=== PATIENT | male | born 1955 | race Caucasian/White ===

== ENCOUNTER 2023-09-18 20:07 | Inpatient (IN) | payer MEDICARE, MEDICAID ==
[~2023-09-18] VITALS: Ht 175.3 cm; Wt 108.4 kg
[2023-09-18] MEDS ORDERED: NOREPINEPHRINE 8MG/250ML PMX 250 ML IV ONE (20:15)
[2023-09-18 20:31] VITALS: PULSE 58; RESP 16
[2023-09-18 20:32] LABS: BASOPHILS % 0.4 % (0.0-2.0); EOSINOPHILS % 0.5 % (0.0-5.0); LYMPHOCYTES % 20.1 % (20.0-50.0); MEAN CORPUSCULAR HEMOGLOBIN 25.9 pg (28.0-32.0); MEAN CORPUSCULAR HGB CONC 30.3 g/dL (31.0-37.0); MEAN CORPUSCULAR VOLUME 85.5 fL (80.0-94.0); MONOCYTES % 5.5 % (2.0-8.0); NEUTROPHILS % 73.5 % (40.0-76.0); PLATELET 167 x1000/uL (130-400); RED BLOOD CELL COUNT 2.69 mill/uL (4.7-6.1); RED CELL DISTRIBUTION WIDTH 17.6 % (11.6-14.6); WHITE BLOOD COUNT 11.3 x1000/uL (4.5-11.0)
[2023-09-18 20:41] LABS: INR 1.2; PROTHROMBIN TIME 12.4 sec (9.6-11.0)
[2023-09-18 20:49] LABS: ALANINE AMINOTRANSFERASE 16 IU/L (10-49); ALBUMIN 3.3 g/dL (3.2-4.8); ASPARTATE AMINOTRANSFERASE 34 IU/L (<34); BILIRUBIN TOTAL 0.5 mg/dL (0.1-1.0); CALCIUM 8.5 mg/dL (8.7-10.4); CARBON DIOXIDE 12 mEq/L (21-32); CHLORIDE 114 mEq/L (98-107); GLUCOSE 111 mg/dL (70-105); POTASSIUM 5.9 mEq/L (3.5-5.1); PROTEIN TOTAL 6.2 g/dL (6.0-8.3); SODIUM 145 mEq/L (136-145)
[2023-09-18] MEDS ORDERED: PROPOFOL 10MG/ML 100ML 100 ML IV SCH (21:00)
[2023-09-18] MEDS ORDERED: CEFTRIAXONE 1GM PREMIX 50 ML IV ONE (21:15)
[2023-09-18] MEDS ORDERED: VANCOMYCIN 1G PREMIX 200 ML IV ONE (21:15)
[2023-09-18] MEDS ORDERED: PIPERACILLIN/TAZ 3.375G PREMIX 50 ML IV ONE (21:15)
[2023-09-18 21:16] LABS: CREATININE 9.5 mg/dL (0.6-1.3); TROPONIN I HIGH SENSITIVITY 86 ng/L (3.0-53); UREA NITROGEN BLOOD 122 mg/dL (9-23)
[2023-09-18 21:17] LABS: LACTIC ACID 3.7 mmol/L (0.4-2.0)
[2023-09-18] MEDS ORDERED: DEXTROSE 50% WATER 50ML SYRINGE IV ONE (21:30)
[2023-09-18] MEDS ORDERED: INSULIN REGULAR (HUMULIN R) 300UNITS/3ML VIAL IV ONE (21:30)
[2023-09-18] MEDS ORDERED: CALCIUM GLUCONATE 1,000 MG in DEXT 5% WATER 100 ML IV ONE (21:30)
[2023-09-18] MEDS ORDERED: SODIUM POLYSTYRENE SULFONATE 15 G/60 ML BOT PO ONE (21:30)
[2023-09-18] MEDS ORDERED: ATROPINE SULFATE 1MG/10ML SYR IV ONE (21:30)
[2023-09-18] MEDS ORDERED: FUROSEMIDE 100MG/10ML VIAL IV ONE (21:30)
[2023-09-18] MEDS ORDERED: FUROSEMIDE 40MG/4ML VIAL IV NR (21:45)
[2023-09-18] MEDS ORDERED: CALCIUM GLUCONATE 1GM PREMIX 50 ML IV NR (21:45)
[2023-09-18 21:57] LABS: BG BASE EXCESS -18.3 mmol/L (-2.0-2.0); BG CARBOXYHEMOGLOBIN 0.3 % (0.5-1.5); BG DEOXYHEMOGLOBIN 2.6 % (0.0-5.0); BG FRACTION INSPIRED OXYGEN 100; BG HCO3 ACT 11.9 mmol/L (22.0-26.0); BG OXYGEN SATURATION 97.4 % (92.0-98.5); BG OXYHEMOGLOBIN 97.1 % (94.0-97.0); BG PCO2 47.5 mmHg (35.0-45.0); BG PH 7.016 (7.350-7.450); BG PO2 205.9 mmHg (75.0-100.0); BG SAMPLE SITE RIGHT RADIAL; BG TOTAL HEMOGLOBIN 9.5 g/dL (12.0-18.0); BG VENT MODE VENT - AC
[2023-09-18 22:11] VITALS: PULSE 52; RESP 22
[2023-09-18] MEDS ORDERED: ACETAMINOPHEN 325MG TABLET PO PRN ×2 (22:45)
[2023-09-18] MEDS ORDERED: GUAIFENESIN 200MG/10ML SUGAR FREE UDC PO PRN (22:45)
[2023-09-18] MEDS ORDERED: MAGNESIUM/ALUMINUM HYDROXIDE/SIMETHICONE 30ML UDC PO PRN (22:45)
[2023-09-18] MEDS ORDERED: IPRATROPIUM/ALBUTEROL 0.5-3(2.5)MG/3ML NEB HHN PRN (22:45)
[2023-09-18] MEDS ORDERED: DOCUSATE SODIUM 100MG CAPSULE PO PRN (22:45)
[2023-09-18] MEDS ORDERED: ONDANSETRON HCL 4MG/2ML INJ IV PRN (22:45)
[2023-09-18] MEDS ORDERED: DOPAMINE 400MG/250ML PREMIX 250 ML IV PRN (23:11)
[2023-09-18] MEDS ORDERED: SODIUM BICARBONATE 8.4% 1 MEQ/ML 50ML SYR IV NR (23:15)
[2023-09-18 23:21] LABS: TROPONIN I HIGH SENSITIVITY 92 ng/L (3.0-53)
[2023-09-18] MEDS ORDERED: FENTANYL CITRATE/PF 2,500 MCG in SODIUM CHLORIDE 0.9% 200 ML IV PRN (23:30)
[2023-09-18 23:41] LABS: IRON 65 ug/dL (65-175); TOTAL IRON BINDING CAPACITY 211 ug/dl (250-425)
[2023-09-18] MEDS ORDERED: DEXTROSE 50% WATER 50ML SYRINGE IV NR (23:45)
[2023-09-18 23:55] LABS: PHOSPHORUS 9.1 mg/dL (2.5-4.9)
[2023-09-19] VITALS (69 sets, daily range): BP systolic 133–170; BP diastolic 61–81; PULSE 50–79; RESP 12–33; TEMP 96.9–98.5
[2023-09-19] MEDS: ALBUTEROL (0.083%) 2.5MG/3ML NEB HHN SCH ×2 (00:05→00:06)
[2023-09-19] MEDS ORDERED: IPRATROPIUM/ALBUTEROL 0.5-3(2.5)MG/3ML NEB HHN PRN (00:15)
[2023-09-19] MEDS ORDERED: INSULIN REGULAR (HUMULIN R) 300UNITS/3ML VIAL IV NR ×2 (00:30→04:30)
[2023-09-19 00:47] LABS: TROPONIN I HIGH SENSITIVITY 99 ng/L (3.0-53)
[2023-09-19] MEDS ORDERED: CEFTRIAXONE 1GM PREMIX 50 ML IV NR (01:15)
[2023-09-19] MEDS: FENTANYL CITRATE/PF 2,500 MCG in SODIUM CHLORIDE 0.9% 200 ML IV PRN (01:41)
[2023-09-19 02:30] LABS: ALANINE AMINOTRANSFERASE 18 IU/L (10-49); ALBUMIN 3.4 g/dL (3.2-4.8); ASPARTATE AMINOTRANSFERASE 49 IU/L (<34); BILIRUBIN TOTAL 0.6 mg/dL (0.1-1.0); CALCIUM 8.7 mg/dL (8.7-10.4); CARBON DIOXIDE 14 mEq/L (21-32); CHLORIDE 112 mEq/L (98-107); GLUCOSE 171 mg/dL (70-105); POTASSIUM 6.1 mEq/L (3.5-5.1); PROTEIN TOTAL 6.3 g/dL (6.0-8.3); SODIUM 146 mEq/L (136-145)
[2023-09-19 02:38] LABS: CREATININE 9.7 mg/dL (0.6-1.3); UREA NITROGEN BLOOD 139 mg/dL (9-23)
[2023-09-19 03:28] LABS: BG BASE EXCESS -14.3 mmol/L (-2.0-2.0); BG CARBOXYHEMOGLOBIN 0.2 % (0.5-1.5); BG DEOXYHEMOGLOBIN 6.2 % (0.0-5.0); BG FRACTION INSPIRED OXYGEN 80; BG HCO3 ACT 12.9 mmol/L (22.0-26.0); BG METHEMOGLOBIN 0.3 % (0.0-1.5); BG OXYGEN SATURATION 93.8 % (92.0-98.5); BG OXYHEMOGLOBIN 93.3 % (94.0-97.0); BG PCO2 35.3 mmHg (35.0-45.0); BG PH 7.181 (7.350-7.450); BG PO2 90.8 mmHg (75.0-100.0); BG SAMPLE SITE LEFT RADIAL; BG TOTAL HEMOGLOBIN 8.8 g/dL (12.0-18.0); BG VENT MODE VENT - AC
[2023-09-19 04:14] LABS: POTASSIUM 6.1 mEq/L (3.5-5.1)
[2023-09-19] MEDS ORDERED: SODIUM BICARBONATE 8.4% 1 MEQ/ML 50ML SYR IV NR (04:30)
[2023-09-19] MEDS ORDERED: SODIUM POLYSTYRENE SULFONATE 15 G/60 ML BOT PO NR ×2 (04:30→09:45)
[2023-09-19] MEDS ORDERED: ALBUTEROL (0.5%) 2.5MG/0.5ML NEB HHN NR (04:30)
[2023-09-19] MEDS ORDERED: DEXTROSE 50% WATER 50ML SYRINGE IV NR (04:30)
[2023-09-19 05:53] LABS: *AMPHETAMINES SCREEN URINE NEGATIVE (NEGATIVE); *BARBITURATES SCREEN URINE NEGATIVE (NEGATIVE); *BENZODIAZEPINES SCREEN URINE NEGATIVE (NEGATIVE); *COCAINE SCREEN URINE NEGATIVE (NEGATIVE); CANNABINOID URINE SCREEN NEGATIVE (NEGATIVE); ECSTASY MDMA SCREEN URINE NEGATIVE (NEGATIVE); METHADONE URINE SCREEN Neg (NEGATIVE); OPIATES URINE SCREEN NEGATIVE (NEGATIVE); PHENCYCLIDINE URINE SCREEN NEGATIVE (NEGATIVE)
[2023-09-19] MEDS ORDERED: PIPERACILLIN/TAZOBACTAM 3.375 G in DEXTROSE 5% WATER 50 ML IV SCH ×2 (06:00→12:00)
[2023-09-19 07:01] LABS: CLARITY URINE CLOUDY (CLEAR); COLOR URINE YELLOW (YELLOW); GLUCOSE URINE NEGATIVE (NEGATIVE); KETONES URINE NEGATIVE (NEGATIVE); PH URINE 5.5 (4.5-8.0); PROTEIN URINE 3+ (NEGATIVE); SPECIFIC GRAVITY URINE 1.025 (1.005-1.030)
[2023-09-19 07:02] LABS: LEUKOCYTE ESTERASE URINE 2+ (NEGATIVE); NITRITE URINE NEGATIVE (NEGATIVE); OCCULT BLOOD URINE 3+ (NEGATIVE); UROBILINOGEN URINE 0.2 E.U./dL (0.2-1.0)
[2023-09-19 07:18] LABS: HEMATOCRIT. 22.7 % (42.0-52.0); HEMOGLOBIN. 7.3 g/dL (14.0-18.0); MEAN CORPUSCULAR HEMOGLOBIN 26.3 pg (28.0-32.0); MEAN CORPUSCULAR VOLUME 82.1 fL (80.0-94.0); MEAN PLATELET VOLUME 8.5 fl (7.4-10.4); PLATELET 157 x1000/uL (130-400); RED BLOOD CELL COUNT 2.76 mill/uL (4.7-6.1); RED CELL DISTRIBUTION WIDTH 17.5 % (11.6-14.6); WHITE BLOOD COUNT 7.1 x1000/uL (4.5-11.0)
[2023-09-19 07:27] LABS: DIFFERENTIAL COMMENT 1
[2023-09-19 07:53] LABS: SQUAMOUS EPITHELIAL CELL URINE FEW /lpf (RARE/1+); WBC URINE 25-50 /hpf (0-2)
[2023-09-19 07:54] LABS: RBC URINE 25-50 /hpf (0-2)
[2023-09-19 07:55] LABS: BACTERIA URINE 2+
[2023-09-19 08:09] LABS: ALANINE AMINOTRANSFERASE 21 IU/L (10-49); ALBUMIN 3.4 g/dL (3.2-4.8); ASPARTATE AMINOTRANSFERASE 52 IU/L (<34); BILIRUBIN TOTAL 0.5 mg/dL (0.1-1.0); CALCIUM 8.8 mg/dL (8.7-10.4); CARBON DIOXIDE 16 mEq/L (21-32); CHLORIDE 111 mEq/L (98-107); CREATINE KINASE 601 IU/L (46-171); CREATINE KINASE MB FRACTION 23.2 ng/mL (0.5-3.6); GLUCOSE 158 mg/dL (70-105); PROTEIN TOTAL 6.4 g/dL (6.0-8.3); SODIUM 145 mEq/L (136-145); T4 FREE 0.66 ng/dL (0.89-1.76); THYROID STIMULATING HORMONE 5.86 uIU/mL (0.55-4.78)
[2023-09-19 08:36] LABS: TROPONIN I HIGH SENSITIVITY 144 ng/L (3.0-53)
[2023-09-19 08:37] LABS: CREATININE 9.7 mg/dL (0.6-1.3)
[2023-09-19 08:38] LABS: POTASSIUM 6.6 mEq/L (3.5-5.1); UREA NITROGEN BLOOD 133 mg/dL (9-23)
[2023-09-19] MEDS: IPRATROPIUM/ALBUTEROL 0.5-3(2.5)MG/3ML NEB HHN SCH ×3 (08:44→20:29)
[2023-09-19 09:25] LABS: BG BASE EXCESS -11.2 mmol/L (-2.0-2.0); BG CARBOXYHEMOGLOBIN 0.2 % (0.5-1.5); BG FRACTION INSPIRED OXYGEN 60; BG HCO3 ACT 15.6 mmol/L (22.0-26.0); BG METHEMOGLOBIN 0.3 % (0.0-1.5); BG OXYHEMOGLOBIN 91.5 % (94.0-97.0); BG PCO2 38.8 mmHg (35.0-45.0); BG PH 7.223 (7.350-7.450); BG PO2 76.7 mmHg (75.0-100.0); BG SAMPLE SITE RIGHT RADIAL; BG TOTAL HEMOGLOBIN 8.6 g/dL (12.0-18.0); BG VENT MODE VENT - AC
[2023-09-19] MEDS ORDERED: DOPAMINE 400MG/250ML PREMIX 250 ML IV PRN (10:00)
[2023-09-19 10:06] LABS: ANISOCYTOSIS 1+; PLATELET ESTIMATE NORMAL
[2023-09-19] MEDS: PANTOPRAZOLE SODIUM 40 MG/VIAL IV SCH (10:45)
[2023-09-19] MEDS: FUROSEMIDE 40MG/4ML VIAL IV SCH (10:45)
[2023-09-19] MEDS ORDERED: HEPARIN 1000 UNITS/ML 10ML ONE (11:03)
[2023-09-19] MEDS ORDERED: LIDOCAINE HCL 1% 10 MG/ML 10ML VIAL ONE (11:03)
[2023-09-19 11:55] LABS: HEPATITIS A AB IGM NEGATIVE (Negative); HEPATITIS B CORE AB IGM NEGATIVE (Negative); HEPATITIS B SURFACE ANTIGEN NEGATIVE (Negative); HEPATITIS C AB NON REACTIVE (Neg) (Negative)
[2023-09-19] MEDS: PIPERACILLIN/TAZOBACTAM 3.375 G in DEXTROSE 5% WATER 50 ML IV SCH ×2 (12:34→21:40)
[2023-09-19] MEDS ORDERED: DOCU-150 MT (17:03)
[2023-09-19] MEDS ORDERED: HYDR-4135 MT (17:03)
[2023-09-19] MEDS ORDERED: CHOL125C7 (17:03)
[2023-09-19] MEDS ORDERED: FURO40TA5 MT (17:03)
[2023-09-19] MEDS ORDERED: SENN-257 MT (17:03)
[2023-09-19] MEDS ORDERED: FERR325T6 MT (17:03)
[2023-09-19] MEDS ORDERED: SEVE800T8 MT (17:03)
[2023-09-19] MEDS ORDERED: NIFE-32 MT (17:03)
[2023-09-19 17:27] LABS: CREATINE KINASE MB FRACTION 20.6 ng/mL (0.5-3.6)
[2023-09-19] MEDS ORDERED: EPOETIN ALFA 4000UNITS/ML VIAL SUBCUT SCH (21:00)
[2023-09-19 21:25] LABS: HEMATOCRIT 19.7 % (42.0-52.0); HEMOGLOBIN 6.3 g/dL (14.0-18.0)
[2023-09-19] MEDS: CLONIDINE 0.1MG TABLET PO PRN (23:42)
[2023-09-20] VITALS (81 sets, daily range): BP systolic 137–214; BP diastolic 65–130; PULSE 67–80; RESP 15–34; TEMP 96.4–100
[2023-09-20] MEDS: IPRATROPIUM/ALBUTEROL 0.5-3(2.5)MG/3ML NEB HHN SCH ×4 (00:55→20:31)
[2023-09-20 05:12] LABS: BG BASE EXCESS -8.1 mmol/L (-2.0-2.0); BG DEOXYHEMOGLOBIN 2.9 % (0.0-5.0); BG FRACTION INSPIRED OXYGEN 60; BG HCO3 ACT 17.7 mmol/L (22.0-26.0); BG METHEMOGLOBIN 0.3 % (0.0-1.5); BG OXYGEN SATURATION 97.1 % (92.0-98.5); BG OXYHEMOGLOBIN 96.8 % (94.0-97.0); BG PCO2 37.4 mmHg (35.0-45.0); BG PH 7.294 (7.350-7.450); BG PO2 134.2 mmHg (75.0-100.0); BG SAMPLE SITE LEFT RADIAL; BG TOTAL HEMOGLOBIN 7.2 g/dL (12.0-18.0); BG VENT MODE VENT - AC
[2023-09-20 06:27] LABS: ALANINE AMINOTRANSFERASE 17 IU/L (10-49); ASPARTATE AMINOTRANSFERASE 39 IU/L (<34); BILIRUBIN TOTAL 0.5 mg/dL (0.1-1.0); CALCIUM 8.2 mg/dL (8.7-10.4); CARBON DIOXIDE 20 mEq/L (21-32); CHLORIDE 110 mEq/L (98-107); GLUCOSE 66 mg/dL (70-105); POTASSIUM 5.3 mEq/L (3.5-5.1); PROTEIN TOTAL 5.7 g/dL (6.0-8.3); SODIUM 143 mEq/L (136-145)
[2023-09-20 06:54] LABS: UREA NITROGEN BLOOD 106 mg/dL (9-23)
[2023-09-20 06:55] LABS: CREATININE 8.5 mg/dL (0.6-1.3)
[2023-09-20] MEDS ORDERED: SODIUM POLYSTYRENE SULFONATE 15 G/60 ML BOT PO NR (08:30)
[2023-09-20] MEDS: FUROSEMIDE 40MG/4ML VIAL IV SCH (09:02)
[2023-09-20] MEDS: PANTOPRAZOLE SODIUM 40 MG/VIAL IV SCH (09:02)
[2023-09-20] MEDS: CLONIDINE 0.1MG TABLET PO PRN (09:03)
[2023-09-20] MEDS: PIPERACILLIN/TAZOBACTAM 3.375 G in DEXTROSE 5% WATER 50 ML IV SCH ×2 (09:03→21:00)
[2023-09-20 09:07] LABS: HEMATOCRIT. 22.6 % (42.0-52.0); HEMOGLOBIN. 7.2 g/dL (14.0-18.0); MEAN CORPUSCULAR VOLUME 78.1 fL (80.0-94.0); MEAN PLATELET VOLUME 8.2 fl (7.4-10.4); RED BLOOD CELL COUNT 2.89 mill/uL (4.7-6.1); WHITE BLOOD COUNT 6.4 x1000/uL (4.5-11.0)
[2023-09-20 09:11] LABS: DIFFERENTIAL COMMENT 1
[2023-09-20 09:13] LABS: PLATELET 102 x1000/uL (130-400)
[2023-09-20] MEDS: AMLODIPINE 10MG TABLET PO SCH (10:21)
[2023-09-20 10:28] LABS: MICROCYTOSIS 1+; PLATELET ESTIMATE SLIGHTLY DECREASED
[2023-09-20 10:29] LABS: ANISOCYTOSIS 3+
[2023-09-20 10:45] LABS: PHOSPHORUS 7.6 mg/dL (2.5-4.9)
[2023-09-20] MEDS ORDERED: CLONIDINE 0.1MG TABLET PO PRN (14:30)
[2023-09-20] MEDS ORDERED: SEVELAMER CARBONATE 800 MG TABLET PO SCH (17:00)
[2023-09-20] MEDS: HYDRALAZINE 20MG/ML VIAL IV PRN ×2 (18:28→21:57)
[2023-09-20] MEDS ORDERED: HYDRALAZINE 20MG/ML VIAL IV PRN (18:30)
[2023-09-20] MEDS: FENTANYL CITRATE/PF 2,500 MCG in SODIUM CHLORIDE 0.9% 200 ML IV PRN (22:06)
[2023-09-21] VITALS (81 sets, daily range): BP systolic 133–181; BP diastolic 57–111; PULSE 55–77; RESP 13–30; TEMP 98.2–100
[2023-09-21] MEDS: IPRATROPIUM/ALBUTEROL 0.5-3(2.5)MG/3ML NEB HHN SCH ×4 (01:29→20:56)
[2023-09-21 04:45] LABS: BASOPHILS % 0.4 % (0.0-2.0); EOSINOPHILS % 2.1 % (0.0-5.0); HEMATOCRIT. 21.2 % (42.0-52.0); LYMPHOCYTES % 11.6 % (20.0-50.0); MEAN CORPUSCULAR HEMOGLOBIN 25.3 pg (28.0-32.0); MEAN CORPUSCULAR HGB CONC 32.3 g/dL (31.0-37.0); MEAN CORPUSCULAR VOLUME 78.1 fL (80.0-94.0); MEAN PLATELET VOLUME 8.5 fl (7.4-10.4); MONOCYTES % 4.9 % (2.0-8.0); PLATELET 93 x1000/uL (130-400); RED BLOOD CELL COUNT 2.72 mill/uL (4.7-6.1)
[2023-09-21 04:52] LABS: POTASSIUM 4.1 mEq/L (3.5-5.1)
[2023-09-21 05:24] LABS: DIFFERENTIAL COMMENT 1
[2023-09-21 05:25] LABS: HEMOGLOBIN. 6.9 g/dL (14.0-18.0)
[2023-09-21 06:07] LABS: CREATININE 6.4 mg/dL (0.6-1.3)
[2023-09-21] MEDS: SEVELAMER CARBONATE 800 MG TABLET PO SCH ×3 (08:20→17:07)
[2023-09-21] MEDS: FOLIC ACID/VITAMIN B COMP W-C TABLET PO SCH (09:03)
[2023-09-21] MEDS: FUROSEMIDE 40MG/4ML VIAL IV SCH (09:03)
[2023-09-21] MEDS: HYDRALAZINE 20MG/ML VIAL IV PRN ×3 (09:03→22:54)
[2023-09-21] MEDS: PANTOPRAZOLE SODIUM 40 MG/VIAL IV SCH (09:03)
[2023-09-21] MEDS: AMLODIPINE 10MG TABLET PO SCH (09:04)
[2023-09-21 09:12] LABS: BG CARBOXYHEMOGLOBIN 0.3 % (0.5-1.5); BG DEOXYHEMOGLOBIN 1.8 % (0.0-5.0); BG FRACTION INSPIRED OXYGEN 50; BG HCO3 ACT 20.9 mmol/L (22.0-26.0); BG METHEMOGLOBIN 0.3 % (0.0-1.5); BG OXYGEN SATURATION 98.2 % (92.0-98.5); BG OXYHEMOGLOBIN 97.6 % (94.0-97.0); BG PCO2 32.6 mmHg (35.0-45.0); BG PH 7.425 (7.350-7.450); BG SAMPLE SITE RIGHT RADIAL; BG VENT MODE VENT - AC
[2023-09-21] MEDS: PIPERACILLIN/TAZOBACTAM 3.375 G in DEXTROSE 5% WATER 50 ML IV SCH ×2 (10:20→21:32)
[2023-09-21 18:47] LABS: HEMATOCRIT 24.6 % (42.0-52.0)
[2023-09-21] MEDS: EPOETIN ALFA 4000UNITS/ML VIAL SUBCUT SCH (21:32)
[2023-09-21 22:15] LABS: BG CARBOXYHEMOGLOBIN 0.3 % (0.5-1.5); BG DEOXYHEMOGLOBIN 2.5 % (0.0-5.0); BG FRACTION INSPIRED OXYGEN 40; BG HCO3 ACT 27.2 mmol/L (22.0-26.0); BG METHEMOGLOBIN 0.3 % (0.0-1.5); BG OXYGEN SATURATION 97.5 % (92.0-98.5); BG OXYHEMOGLOBIN 96.9 % (94.0-97.0); BG PCO2 40.1 mmHg (35.0-45.0); BG PH 7.449 (7.350-7.450); BG PO2 135.8 mmHg (75.0-100.0); BG SAMPLE SITE RIGHT RADIAL; BG TOTAL HEMOGLOBIN 9.3 g/dL (12.0-18.0); BG VENT MODE VENT - AC
[2023-09-22] VITALS (64 sets, daily range): BP systolic 145–176; BP diastolic 59–130; PULSE 64–78; RESP 12–22; TEMP 97.4–99
[2023-09-22] MEDS: IPRATROPIUM/ALBUTEROL 0.5-3(2.5)MG/3ML NEB HHN SCH ×4 (00:09→20:42)
[2023-09-22] MEDS: HYDRALAZINE 20MG/ML VIAL IV PRN ×2 (05:14→17:01)
[2023-09-22] MEDS: PANTOPRAZOLE SODIUM 40 MG/VIAL IV SCH (08:10)
[2023-09-22] MEDS: SEVELAMER CARBONATE 800 MG TABLET PO SCH ×3 (08:10→16:58)
[2023-09-22] MEDS: PIPERACILLIN/TAZOBACTAM 3.375 G in DEXTROSE 5% WATER 50 ML IV SCH (08:10)
[2023-09-22] MEDS: AMLODIPINE 10MG TABLET PO SCH (08:10)
[2023-09-22] MEDS: FOLIC ACID/VITAMIN B COMP W-C TABLET PO SCH (08:10)
[2023-09-22] MEDS: FUROSEMIDE 40MG/4ML VIAL IV SCH (08:11)
[2023-09-22 09:44] LABS: HEMATOCRIT 25.4 % (42.0-52.0); HEMOGLOBIN 8.4 g/dL (14.0-18.0); MEAN CORPUSCULAR HEMOGLOBIN 25.7 pg (28.0-32.0); MEAN CORPUSCULAR HGB CONC 33.2 g/dL (31.0-37.0); MEAN CORPUSCULAR VOLUME 77.2 fL (80.0-94.0); PLATELET 103 x1000/uL (130-400); RED BLOOD CELL COUNT 3.29 mill/uL (4.7-6.1); RED CELL DISTRIBUTION WIDTH 20.8 % (11.6-14.6); WHITE BLOOD COUNT 8.5 x1000/uL (4.5-11.0)
[2023-09-22] MEDS: LISINOPRIL 5MG TABLET PO SCH (10:28)
[2023-09-22] MEDS: CARVEDILOL 3.125 MG TABLET PO SCH (10:28)
[2023-09-22 10:53] LABS: CALCIUM 7.6 mg/dL (8.7-10.4); POTASSIUM 3.5 mEq/L (3.5-5.1)
[2023-09-22 10:57] LABS: CREATININE 5.6 mg/dL (0.6-1.3)
[2023-09-22 11:50] LABS: HEPATITIS A AB IGM NEGATIVE (Negative); HEPATITIS B CORE AB IGM NEGATIVE (Negative); HEPATITIS B SURFACE ANTIGEN NEGATIVE (Negative); HEPATITIS C AB NON REACTIVE (Neg) (Negative)
[2023-09-23] VITALS (58 sets, daily range): BP systolic 137–189; BP diastolic 61–88; PULSE 60–77; RESP 11–21; TEMP 97.4–98.8; O2SAT 97–98
[2023-09-23] MEDS: CARVEDILOL 3.125 MG TABLET PO SCH ×3 (00:20→21:58)
[2023-09-23] MEDS: PIPERACILLIN/TAZOBACTAM 3.375 G in DEXTROSE 5% WATER 50 ML IV SCH ×2 (00:21→08:07)
[2023-09-23] MEDS: HYDRALAZINE 20MG/ML VIAL IV PRN ×3 (00:21→16:00)
[2023-09-23] MEDS: IPRATROPIUM/ALBUTEROL 0.5-3(2.5)MG/3ML NEB HHN SCH ×4 (03:08→20:04)
[2023-09-23 06:09] LABS: HEMATOCRIT 25.5 % (42.0-52.0); HEMOGLOBIN 8.3 g/dL (14.0-18.0); MEAN CORPUSCULAR HEMOGLOBIN 25.9 pg (28.0-32.0); MEAN CORPUSCULAR HGB CONC 32.7 g/dL (31.0-37.0); MEAN CORPUSCULAR VOLUME 79.3 fL (80.0-94.0); PLATELET 99 x1000/uL (130-400); RED BLOOD CELL COUNT 3.22 mill/uL (4.7-6.1); RED CELL DISTRIBUTION WIDTH 20.7 % (11.6-14.6); WHITE BLOOD COUNT 7.3 x1000/uL (4.5-11.0)
[2023-09-23 06:13] LABS: ALANINE AMINOTRANSFERASE 9 IU/L (10-49); ALBUMIN 2.6 g/dL (3.2-4.8); ASPARTATE AMINOTRANSFERASE 18 IU/L (<34); BILIRUBIN TOTAL 0.5 mg/dL (0.1-1.0); CALCIUM 7.6 mg/dL (8.7-10.4); CARBON DIOXIDE 27 mEq/L (21-32); CHLORIDE 105 mEq/L (98-107); CREATINE KINASE 64 IU/L (46-171); CREATININE 4.6 mg/dL (0.6-1.3); GLUCOSE 139 mg/dL (70-105); PHOSPHORUS 5.2 mg/dL (2.5-4.9); POTASSIUM 3.6 mEq/L (3.5-5.1); PROTEIN TOTAL 5.1 g/dL (6.0-8.3); SODIUM 143 mEq/L (136-145); UREA NITROGEN BLOOD 64 mg/dL (9-23)
[2023-09-23] MEDS: SEVELAMER CARBONATE 800 MG TABLET PO SCH ×3 (07:03→16:00)
[2023-09-23] MEDS: AMLODIPINE 10MG TABLET PO SCH (08:06)
[2023-09-23] MEDS: PANTOPRAZOLE SODIUM 40 MG/VIAL IV SCH (08:06)
[2023-09-23] MEDS: FOLIC ACID/VITAMIN B COMP W-C TABLET PO SCH (08:07)
[2023-09-23] MEDS: FUROSEMIDE 40MG/4ML VIAL IV SCH (08:07)
[2023-09-23] MEDS: LISINOPRIL 5MG TABLET PO SCH (09:00)
[2023-09-23 09:07] LABS: BG BASE EXCESS 1.4 mmol/L (-2.0-2.0); BG CARBOXYHEMOGLOBIN 0.4 % (0.5-1.5); BG DEOXYHEMOGLOBIN 2.5 % (0.0-5.0); BG FRACTION INSPIRED OXYGEN 40; BG HCO3 ACT 25.8 mmol/L (22.0-26.0); BG METHEMOGLOBIN 0.3 % (0.0-1.5); BG OXYGEN SATURATION 97.5 % (92.0-98.5); BG OXYHEMOGLOBIN 96.8 % (94.0-97.0); BG PCO2 39.9 mmHg (35.0-45.0); BG PH 7.429 (7.350-7.450); BG PO2 127.9 mmHg (75.0-100.0); BG SAMPLE SITE LEFT RADIAL; BG TOTAL HEMOGLOBIN 8.6 g/dL (12.0-18.0); BG VENT MODE VENT - SIMV
[2023-09-23 10:26] LABS: BG BASE EXCESS 1.8 mmol/L (-2.0-2.0); BG CARBOXYHEMOGLOBIN 0.3 % (0.5-1.5); BG FRACTION INSPIRED OXYGEN 40; BG HCO3 ACT 26.3 mmol/L (22.0-26.0); BG METHEMOGLOBIN 0.3 % (0.0-1.5); BG OXYHEMOGLOBIN 96.4 % (94.0-97.0); BG PCO2 40.7 mmHg (35.0-45.0); BG PH 7.428 (7.350-7.450); BG PO2 109.9 mmHg (75.0-100.0); BG SAMPLE SITE LEFT RADIAL; BG TOTAL HEMOGLOBIN 8.6 g/dL (12.0-18.0); BG VENT MODE VENT - CPAP
[2023-09-23] MEDS ORDERED: DEXTROSE 50% WATER 50ML SYRINGE IV PRN (17:45)
[2023-09-23] MEDS: INSULIN LISPRO 100 UNITS/ML SUBCUT SCH (21:00)
[2023-09-23] MEDS: BLOOD SUGAR DIAGNOSTIC STRIP TEST SCH (22:00)
[2023-09-23] MEDS: EPOETIN ALFA 4000UNITS/ML VIAL SUBCUT SCH (22:34)
[2023-09-24] VITALS (15 sets, daily range): BP systolic 143–179; BP diastolic 58–80; PULSE 54–65; RESP 16–20; TEMP 96.6–98.6
[2023-09-24] MEDS: HYDRALAZINE 20MG/ML VIAL IV PRN (01:30)
[2023-09-24] MEDS: BLOOD SUGAR DIAGNOSTIC STRIP TEST SCH ×4 (07:40→20:32)
[2023-09-24] MEDS: INSULIN LISPRO 100 UNITS/ML SUBCUT SCH ×4 (08:10→20:42)
[2023-09-24 08:41] LABS: HEMATOCRIT 29.2 % (42.0-52.0); HEMOGLOBIN 9.7 g/dL (14.0-18.0); MEAN CORPUSCULAR HEMOGLOBIN 25.9 pg (28.0-32.0); MEAN CORPUSCULAR HGB CONC 33.3 g/dL (31.0-37.0); MEAN CORPUSCULAR VOLUME 77.6 fL (80.0-94.0); PLATELET 116 x1000/uL (130-400); RED BLOOD CELL COUNT 3.76 mill/uL (4.7-6.1); RED CELL DISTRIBUTION WIDTH 20.4 % (11.6-14.6); WHITE BLOOD COUNT 7.5 x1000/uL (4.5-11.0)
[2023-09-24 09:40] LABS: CALCIUM 7.8 mg/dL (8.7-10.4); CARBON DIOXIDE 25 mEq/L (21-32); CHLORIDE 103 mEq/L (98-107); GLUCOSE 84 mg/dL (70-105); PHOSPHORUS 5.9 mg/dL (2.5-4.9); POTASSIUM 3.9 mEq/L (3.5-5.1); SODIUM 142 mEq/L (136-145); UREA NITROGEN BLOOD 64 mg/dL (9-23)
[2023-09-24 09:42] LABS: CREATININE 5.3 mg/dL (0.6-1.3)
[2023-09-24] MEDS: AMLODIPINE 10MG TABLET PO SCH (10:42)
[2023-09-24] MEDS: FUROSEMIDE 40MG/4ML VIAL IV SCH (10:42)
[2023-09-24] MEDS: FOLIC ACID/VITAMIN B COMP W-C TABLET PO SCH (10:42)
[2023-09-24] MEDS: PANTOPRAZOLE SODIUM 40 MG/VIAL IV SCH (10:42)
[2023-09-24] MEDS: CARVEDILOL 3.125 MG TABLET PO SCH ×2 (10:43→20:30)
[2023-09-24] MEDS: SEVELAMER CARBONATE 800 MG TABLET PO SCH ×3 (10:43→16:54)
[2023-09-24] MEDS: CLONIDINE 0.1MG TABLET PO PRN (12:09)
[2023-09-25] VITALS: BP 175/77; PULSE 55; RESP 16; TEMP 97.5
[2023-09-25 04:00] VITALS: BP 176/74; PULSE 57; RESP 16; TEMP 98.1
[2023-09-25] MEDS: CLONIDINE 0.1MG TABLET PO PRN (07:16)
[2023-09-25] MEDS: BLOOD SUGAR DIAGNOSTIC STRIP TEST SCH ×4 (07:37→21:00)
[2023-09-25] MEDS: INSULIN LISPRO 100 UNITS/ML SUBCUT SCH ×4 (07:38→21:00)
[2023-09-25 08:00] VITALS: BP 155/72; PULSE 56; RESP 16; TEMP 97.6
[2023-09-25] MEDS: SEVELAMER CARBONATE 800 MG TABLET PO SCH ×4 (08:10→17:37)
[2023-09-25] MEDS: CARVEDILOL 3.125 MG TABLET PO SCH ×2 (10:04→21:57)
[2023-09-25] MEDS: PANTOPRAZOLE SODIUM 40 MG/VIAL IV SCH (10:04)
[2023-09-25] MEDS: FUROSEMIDE 40MG/4ML VIAL IV SCH (10:04)
[2023-09-25] MEDS: AMLODIPINE 10MG TABLET PO SCH (10:04)
[2023-09-25] MEDS: FOLIC ACID/VITAMIN B COMP W-C TABLET PO SCH (10:04)
[2023-09-25 11:02] LABS: HEMATOCRIT 31.5 % (42.0-52.0); HEMOGLOBIN 10.2 g/dL (14.0-18.0); MEAN CORPUSCULAR HEMOGLOBIN 26.1 pg (28.0-32.0); MEAN CORPUSCULAR HGB CONC 32.4 g/dL (31.0-37.0); MEAN CORPUSCULAR VOLUME 80.6 fL (80.0-94.0); PLATELET 153 x1000/uL (130-400); RED BLOOD CELL COUNT 3.91 mill/uL (4.7-6.1); RED CELL DISTRIBUTION WIDTH 20.2 % (11.6-14.6); WHITE BLOOD COUNT 7.7 x1000/uL (4.5-11.0)
[2023-09-25 11:50] LABS: CALCIUM 7.8 mg/dL (8.7-10.4); CARBON DIOXIDE 25 mEq/L (21-32); CHLORIDE 103 mEq/L (98-107); GLUCOSE 143 mg/dL (70-105); PHOSPHORUS 6.2 mg/dL (2.5-4.9); POTASSIUM 4.2 mEq/L (3.5-5.1); SODIUM 138 mEq/L (136-145); UREA NITROGEN BLOOD 70 mg/dL (9-23)
[2023-09-25 11:54] LABS: CREATININE 5.4 mg/dL (0.6-1.3)
[2023-09-25 12:00] VITALS: BP 183/85; PULSE 55; RESP 16; TEMP 98
[2023-09-25] MEDS ORDERED: HYDRALAZINE HCL 10MG TABLET PO SCH (14:00)
[2023-09-25] MEDS: HYDRALAZINE HCL 50MG TABLET PO SCH ×2 (14:24→21:58)
[2023-09-25 15:05] LABS: HEPATITIS B CORE AB IGM NEGATIVE (Negative); HEPATITIS C AB NON REACTIVE (Neg) (Negative)
[2023-09-25] MEDS: HYDRALAZINE 20MG/ML VIAL IV PRN (15:10)
[2023-09-25 16:00] VITALS: BP 162/72; PULSE 54; RESP 16; TEMP 97.6
[2023-09-25 17:32] LABS: HEPATITIS A AB IGM NEGATIVE (Negative); HEPATITIS B CORE AB IGM NEGATIVE (Negative); HEPATITIS B SURFACE ANTIGEN NEGATIVE (Negative); HEPATITIS C AB NON REACTIVE (Neg) (Negative)
[2023-09-25 20:00] VITALS: BP 165/61; PULSE 60; RESP 20; TEMP 97
[2023-09-26] VITALS (10 sets, daily range): BP systolic 125–172; BP diastolic 66–165; PULSE 50–77; RESP 17–20; TEMP 97.2–98
[2023-09-26 06:16] LABS: BASOPHILS % 0.9 % (0.0-2.0); DIFFERENTIAL COMMENT 0; EOSINOPHILS % 4.4 % (0.0-5.0); HEMATOCRIT. 28.3 % (42.0-52.0); HEMOGLOBIN. 9.5 g/dL (14.0-18.0); LYMPHOCYTES % 13.9 % (20.0-50.0); MEAN CORPUSCULAR HEMOGLOBIN 26.1 pg (28.0-32.0); MEAN CORPUSCULAR HGB CONC 33.8 g/dL (31.0-37.0); MEAN CORPUSCULAR VOLUME 77.2 fL (80.0-94.0); MEAN PLATELET VOLUME 8.8 fl (7.4-10.4); MONOCYTES % 7.7 % (2.0-8.0); NEUTROPHILS % 73.1 % (40.0-76.0); PLATELET 143 x1000/uL (130-400); RED BLOOD CELL COUNT 3.66 mill/uL (4.7-6.1); RED CELL DISTRIBUTION WIDTH 20.5 % (11.6-14.6)
[2023-09-26] MEDS: HYDRALAZINE HCL 50MG TABLET PO SCH ×3 (06:52→21:58)
[2023-09-26] MEDS: SEVELAMER CARBONATE 800 MG TABLET PO SCH ×3 (08:10→18:48)
[2023-09-26] MEDS: INSULIN LISPRO 100 UNITS/ML SUBCUT SCH ×4 (08:10→22:15)
[2023-09-26] MEDS: BLOOD SUGAR DIAGNOSTIC STRIP TEST SCH ×4 (08:34→21:59)
[2023-09-26] MEDS: PANTOPRAZOLE SODIUM 40 MG/VIAL IV SCH (09:00)
[2023-09-26] MEDS: FUROSEMIDE 40MG/4ML VIAL IV SCH (09:00)
[2023-09-26] MEDS: CARVEDILOL 3.125 MG TABLET PO SCH ×2 (09:00→21:58)
[2023-09-26] MEDS: AMLODIPINE 10MG TABLET PO SCH (09:00)
[2023-09-26] MEDS: FOLIC ACID/VITAMIN B COMP W-C TABLET PO SCH (09:00)
[2023-09-26 09:05] LABS: CALCIUM 7.6 mg/dL (8.7-10.4); POTASSIUM 4.2 mEq/L (3.5-5.1)
[2023-09-26 09:20] LABS: CREATININE 6.1 mg/dL (0.6-1.3)
[2023-09-26] MEDS: EPOETIN ALFA 4000UNITS/ML VIAL SUBCUT SCH (21:58)
[2023-09-26] MEDS: CLONIDINE 0.1MG TABLET PO PRN (21:58)
[2023-09-27 00:11] VITALS: BP 171/76; PULSE 63; RESP 20; TEMP 97.5
[2023-09-27 04:00] VITALS: BP 119/64; PULSE 59; RESP 17; TEMP 97.1
[2023-09-27] MEDS: HYDRALAZINE HCL 50MG TABLET PO SCH ×4 (06:00→21:21)
[2023-09-27] MEDS: BLOOD SUGAR DIAGNOSTIC STRIP TEST SCH ×4 (06:30→21:21)
[2023-09-27 06:41] LABS: HEMATOCRIT 25.9 % (42.0-52.0); HEMOGLOBIN 8.7 g/dL (14.0-18.0); MEAN CORPUSCULAR HGB CONC 33.5 g/dL (31.0-37.0); MEAN CORPUSCULAR VOLUME 77.7 fL (80.0-94.0); PLATELET 138 x1000/uL (130-400); RED BLOOD CELL COUNT 3.33 mill/uL (4.7-6.1); RED CELL DISTRIBUTION WIDTH 19.9 % (11.6-14.6); WHITE BLOOD COUNT 6.4 x1000/uL (4.5-11.0)
[2023-09-27 06:59] LABS: CALCIUM 7.5 mg/dL (8.7-10.4); CARBON DIOXIDE 27 mEq/L (21-32); CHLORIDE 100 mEq/L (98-107); GLUCOSE 90 mg/dL (70-105); PHOSPHORUS 6.1 mg/dL (2.5-4.9); POTASSIUM 3.8 mEq/L (3.5-5.1); SODIUM 138 mEq/L (136-145); UREA NITROGEN BLOOD 68 mg/dL (9-23)
[2023-09-27 08:00] VITALS: BP 149/71; PULSE 60; RESP 18; TEMP 97.1
[2023-09-27] MEDS: INSULIN LISPRO 100 UNITS/ML SUBCUT SCH ×4 (08:10→21:00)
[2023-09-27] MEDS: PANTOPRAZOLE SODIUM 40 MG/VIAL IV SCH (08:40)
[2023-09-27] MEDS: FUROSEMIDE 40MG/4ML VIAL IV SCH (08:40)
[2023-09-27] MEDS: AMLODIPINE 10MG TABLET PO SCH (08:41)
[2023-09-27] MEDS: FOLIC ACID/VITAMIN B COMP W-C TABLET PO SCH (08:41)
[2023-09-27] MEDS: CARVEDILOL 3.125 MG TABLET PO SCH ×2 (08:41→21:21)
[2023-09-27] MEDS: SEVELAMER CARBONATE 800 MG TABLET PO SCH ×4 (09:07→17:30)
[2023-09-27 11:53] VITALS: BP 138/62; PULSE 71; RESP 18; TEMP 97.3
[2023-09-27 16:00] VITALS: BP 126/62; PULSE 76; RESP 18; TEMP 97.6
[2023-09-27 20:00] VITALS: BP 135/50; PULSE 58; RESP 19; TEMP 98.1
[2023-09-28] VITALS (25 sets, daily range): BP systolic 130–225; BP diastolic 56–90; PULSE 58–68; RESP 12–20; TEMP 96.9–98.6
[2023-09-28] MEDS: HYDRALAZINE HCL 50MG TABLET PO SCH (06:00)
[2023-09-28] MEDS: BLOOD SUGAR DIAGNOSTIC STRIP TEST SCH ×4 (06:35→21:00)
[2023-09-28] MEDS ORDERED: LIDOCAINE HCL 1% 10 MG/ML 10ML VIAL ONE (07:25)
[2023-09-28] MEDS ORDERED: CEFAZOLIN 1000MG PREMIX 50 ML IV ONE (07:30)
[2023-09-28] MEDS ORDERED: FENTANYL CITRATE/PF 50MCG/ML 2ML VIAL ONE (07:56)
[2023-09-28] MEDS: INSULIN LISPRO 100 UNITS/ML SUBCUT SCH ×4 (08:10→22:18)
[2023-09-28] MEDS ORDERED: FENTANYL CITRATE/PF 50MCG/ML 2ML VIAL IV ONE (08:15)
[2023-09-28] MEDS: FUROSEMIDE 40MG/4ML VIAL IV SCH (08:53)
[2023-09-28] MEDS: PANTOPRAZOLE SODIUM 40 MG/VIAL IV SCH (08:53)
[2023-09-28] MEDS: CARVEDILOL 3.125 MG TABLET PO SCH ×2 (08:53→22:17)
[2023-09-28] MEDS: AMLODIPINE 10MG TABLET PO SCH (08:53)
[2023-09-28] MEDS: SEVELAMER CARBONATE 800 MG TABLET PO SCH ×3 (08:53→18:23)
[2023-09-28] MEDS: FOLIC ACID/VITAMIN B COMP W-C TABLET PO SCH (08:55)
[2023-09-28] MEDS ORDERED: HYDRALAZINE 20MG/ML VIAL IV SCH (09:00)
[2023-09-28 12:27] LABS: HEMOGLOBIN 9.4 g/dL (14.0-18.0); MEAN CORPUSCULAR HEMOGLOBIN 25.3 pg (28.0-32.0); MEAN CORPUSCULAR HGB CONC 32.4 g/dL (31.0-37.0); MEAN CORPUSCULAR VOLUME 78.3 fL (80.0-94.0); PLATELET 180 x1000/uL (130-400); RED CELL DISTRIBUTION WIDTH 20.1 % (11.6-14.6); WHITE BLOOD COUNT 10.5 x1000/uL (4.5-11.0)
[2023-09-28 13:14] LABS: CALCIUM 7.3 mg/dL (8.7-10.4); CARBON DIOXIDE 25 mEq/L (21-32); CHLORIDE 101 mEq/L (98-107); GLUCOSE 118 mg/dL (70-105); PHOSPHORUS 6.9 mg/dL (2.5-4.9); POTASSIUM 4.2 mEq/L (3.5-5.1); SODIUM 137 mEq/L (136-145); UREA NITROGEN BLOOD 75 mg/dL (9-23)
[2023-09-28] MEDS: HYDRALAZINE HCL 100MG TABLET PO SCH ×2 (13:22→22:17)
[2023-09-28] MEDS ORDERED: SEVE800T8 PO (22:10)
[2023-09-28] MEDS ORDERED: COR3 PO (22:10)
[2023-09-28] MEDS ORDERED: NEPVIT PO (22:10)
[2023-09-28] MEDS ORDERED: HYDR100T26 PO (22:10)
[2023-09-28] MEDS ORDERED: FERR325T6 PO (22:10)
[2023-09-28] MEDS ORDERED: AMLO10TA80 PO (22:10)
[2023-09-28] MEDS: EPOETIN ALFA 4000UNITS/ML VIAL SUBCUT SCH (22:19)
[2023-09-29] VITALS: BP 171/76; PULSE 65; RESP 20; TEMP 97.6
[2023-09-29] MEDS: HYDRALAZINE 20MG/ML VIAL IV PRN (01:56)
[2023-09-29 04:00] VITALS: BP 127/57; PULSE 68; RESP 18; TEMP 97.2
[2023-09-29] MEDS: HYDRALAZINE HCL 100MG TABLET PO SCH ×3 (06:53→20:49)
[2023-09-29] MEDS: BLOOD SUGAR DIAGNOSTIC STRIP TEST SCH ×4 (06:53→20:50)
[2023-09-29] MEDS ORDERED: LIDOCAINE HCL 1% 10 MG/ML 10ML VIAL ONE (07:51)
[2023-09-29 08:00] VITALS: BP 160/64; PULSE 65; RESP 18; TEMP 97
[2023-09-29] MEDS: INSULIN LISPRO 100 UNITS/ML SUBCUT SCH ×4 (08:10→20:49)
[2023-09-29] MEDS: SEVELAMER CARBONATE 800 MG TABLET PO SCH ×3 (09:55→18:10)
[2023-09-29] MEDS: FOLIC ACID/VITAMIN B COMP W-C TABLET PO SCH (09:55)
[2023-09-29] MEDS: AMLODIPINE 10MG TABLET PO SCH (09:55)
[2023-09-29] MEDS: PANTOPRAZOLE SODIUM 40 MG/VIAL IV SCH (09:55)
[2023-09-29] MEDS: FUROSEMIDE 40MG/4ML VIAL IV SCH (09:55)
[2023-09-29] MEDS: CARVEDILOL 3.125 MG TABLET PO SCH ×2 (09:55→20:49)
[2023-09-29 11:13] LABS: BASOPHILS % 0.5 % (0.0-2.0); DIFFERENTIAL COMMENT 0; EOSINOPHILS % 2.1 % (0.0-5.0); HEMATOCRIT. 29.4 % (42.0-52.0); HEMOGLOBIN. 9.6 g/dL (14.0-18.0); MEAN CORPUSCULAR HEMOGLOBIN 25.5 pg (28.0-32.0); MEAN CORPUSCULAR HGB CONC 32.5 g/dL (31.0-37.0); MEAN CORPUSCULAR VOLUME 78.4 fL (80.0-94.0); MEAN PLATELET VOLUME 7.7 fl (7.4-10.4); NEUTROPHILS % 82.4 % (40.0-76.0); PLATELET 202 x1000/uL (130-400); RED BLOOD CELL COUNT 3.75 mill/uL (4.7-6.1); RED CELL DISTRIBUTION WIDTH 20.1 % (11.6-14.6)
[2023-09-29 11:59] LABS: ALANINE AMINOTRANSFERASE 9 IU/L (10-49); ALBUMIN 2.9 g/dL (3.2-4.8); ASPARTATE AMINOTRANSFERASE 18 IU/L (<34); BILIRUBIN TOTAL 0.4 mg/dL (0.1-1.0); CALCIUM 7.6 mg/dL (8.7-10.4); CARBON DIOXIDE 27 mEq/L (21-32); CHLORIDE 101 mEq/L (98-107); CREATININE 4.7 mg/dL (0.6-1.3); GLUCOSE 111 mg/dL (70-105); POTASSIUM 4.2 mEq/L (3.5-5.1); PROTEIN TOTAL 5.4 g/dL (6.0-8.3); SODIUM 137 mEq/L (136-145); UREA NITROGEN BLOOD 49 mg/dL (9-23)
[2023-09-29 12:00] VITALS: BP 132/63; PULSE 61; RESP 18; TEMP 97.6
[2023-09-29 13:55] LABS: HEPATITIS A AB IGM NEGATIVE (Negative); HEPATITIS B CORE AB IGM NEGATIVE (Negative); HEPATITIS B SURFACE ANTIGEN NEGATIVE (Negative); HEPATITIS C AB NON REACTIVE (Neg) (Negative)
[2023-09-29 16:00] VITALS: BP 118/56; PULSE 64; RESP 18; TEMP 97.6
[2023-09-29 20:00] VITALS: BP 142/49; PULSE 79; RESP 17; TEMP 97.3
[2023-09-30] VITALS (10 sets, daily range): BP systolic 111–168; BP diastolic 51–84; PULSE 62–76; RESP 16–20; TEMP 96.6–98.2; O2SAT 98
[2023-09-30] MEDS: BLOOD SUGAR DIAGNOSTIC STRIP TEST SCH ×3 (05:48→17:28)
[2023-09-30] MEDS: HYDRALAZINE HCL 100MG TABLET PO SCH ×2 (05:48→14:00)
[2023-09-30] MEDS: INSULIN LISPRO 100 UNITS/ML SUBCUT SCH ×3 (05:49→17:28)
[2023-09-30 07:30] LABS: HEMATOCRIT 27.8 % (42.0-52.0); HEMOGLOBIN 9.1 g/dL (14.0-18.0); MEAN CORPUSCULAR HEMOGLOBIN 25.6 pg (28.0-32.0); MEAN CORPUSCULAR HGB CONC 32.7 g/dL (31.0-37.0); MEAN CORPUSCULAR VOLUME 78.3 fL (80.0-94.0); PLATELET 216 x1000/uL (130-400); RED BLOOD CELL COUNT 3.55 mill/uL (4.7-6.1); RED CELL DISTRIBUTION WIDTH 20.5 % (11.6-14.6); WHITE BLOOD COUNT 12.3 x1000/uL (4.5-11.0)
[2023-09-30 07:59] LABS: CALCIUM 7.5 mg/dL (8.7-10.4); CARBON DIOXIDE 26 mEq/L (21-32); CHLORIDE 100 mEq/L (98-107); CREATININE 5.3 mg/dL (0.6-1.3); GLUCOSE 77 mg/dL (70-105); PHOSPHORUS 6.3 mg/dL (2.5-4.9); POTASSIUM 4.1 mEq/L (3.5-5.1); SODIUM 136 mEq/L (136-145); UREA NITROGEN BLOOD 63 mg/dL (9-23)
[2023-09-30] MEDS: SEVELAMER CARBONATE 800 MG TABLET PO SCH ×3 (08:10→18:17)
[2023-09-30] MEDS: CARVEDILOL 3.125 MG TABLET PO SCH (09:00)
[2023-09-30] MEDS: AMLODIPINE 10MG TABLET PO SCH (09:00)
[2023-09-30] MEDS: PANTOPRAZOLE SODIUM 40 MG/VIAL IV SCH (09:25)
[2023-09-30] MEDS: FOLIC ACID/VITAMIN B COMP W-C TABLET PO SCH (09:25)
[2023-09-30] MEDS: FUROSEMIDE 40MG/4ML VIAL IV SCH (09:25)
== END 2023-09-30 19:35 | disposition home health service (06) | DRG 870 ==
LOC: ER 20:07 → SUPCPDRO 21:39 → MICUSO 22:33 → MICUNO 09-19 10:30 → MICUSO 09-20 10:21 → 7WST 09-23 23:45
PROVIDERS: ADMIT Internal Medicine; ATTEND Internal Medicine
PROC: 5A1955Z Respiratory Ventilation, Greater than 96 Consecutive Hours (ICD-10-PCS; principal; 2023-09-18)
PROC: 0BH17EZ Insertion of Endotracheal Airway into Trachea, Via Natural or Artificial Opening (ICD-10-PCS; 2023-09-18)
PROC: 5A12012 Performance of Cardiac Output, Single, Manual (ICD-10-PCS; 2023-09-18)
PROC: 30233N1 Transfusion of Nonautologous Red Blood Cells into Peripheral Vein, Percutaneous Approach (ICD-10-PCS; 2023-09-19)
PROC: 05HM33Z Insertion of Infusion Device into Right Internal Jugular Vein, Percutaneous Approach (ICD-10-PCS; 2023-09-19)
PROC: B543ZZA Ultrasonography of Right Jugular Veins, Guidance (ICD-10-PCS; 2023-09-19)
PROC: 5A1D70Z Performance of Urinary Filtration, Intermittent, Less than 6 Hours Per Day (ICD-10-PCS; 2023-09-19)
PROC: 5A1D70Z Performance of Urinary Filtration, Intermittent, Less than 6 Hours Per Day (ICD-10-PCS; 2023-09-20)
PROC: 5A1D70Z Performance of Urinary Filtration, Intermittent, Less than 6 Hours Per Day (ICD-10-PCS; 2023-09-21)
PROC: 5A1D70Z Performance of Urinary Filtration, Intermittent, Less than 6 Hours Per Day (ICD-10-PCS; 2023-09-22)
PROC: 5A1D70Z Performance of Urinary Filtration, Intermittent, Less than 6 Hours Per Day (ICD-10-PCS; 2023-09-23)
PROC: 5A1D70Z Performance of Urinary Filtration, Intermittent, Less than 6 Hours Per Day (ICD-10-PCS; 2023-09-25)
PROC: 5A1D70Z Performance of Urinary Filtration, Intermittent, Less than 6 Hours Per Day (ICD-10-PCS; 2023-09-27)
PROC: 0JH63XZ Insertion of Tunneled Vascular Access Device into Chest Subcutaneous Tissue and Fascia, Percutaneous Approach (ICD-10-PCS; 2023-09-28)
PROC: 02HV33Z Insertion of Infusion Device into Superior Vena Cava, Percutaneous Approach (ICD-10-PCS; 2023-09-28)
PROC: B518YZA Fluoroscopy of Superior Vena Cava using Other Contrast, Guidance (ICD-10-PCS; 2023-09-28)
PROC: 5A1D70Z Performance of Urinary Filtration, Intermittent, Less than 6 Hours Per Day (ICD-10-PCS; 2023-09-29)
DX: A41.9 Sepsis, unspecified organism (principal); J69.0 Pneumonitis due to inhalation of food and vomit; I21.A1 Myocardial infarction type 2; J96.01 Acute respiratory failure with hypoxia; N18.6 End stage renal disease; I50.43 Acute on chronic combined systolic (congestive) and diastolic (congestive) heart failure; G92.8 Other toxic encephalopathy; I46.8 Cardiac arrest due to other underlying condition; R57.9 Shock, unspecified; I13.2 Hypertensive heart and chronic kidney disease with heart failure and with stage 5 chronic kidney disease, or end stage renal disease; E44.1 Mild protein-calorie malnutrition; M62.82 Rhabdomyolysis; E87.5 Hyperkalemia; E83.39 Other disorders of phosphorus metabolism; E83.41 Hypermagnesemia; E83.51 Hypocalcemia; E87.8 Other disorders of electrolyte and fluid balance, not elsewhere classified; Z68.35 Body mass index [BMI] 35.0-35.9, adult; E03.8 Other specified hypothyroidism; R00.1 Bradycardia, unspecified; E11.21 Type 2 diabetes mellitus with diabetic nephropathy; E11.649 Type 2 diabetes mellitus with hypoglycemia without coma; D72.829 Elevated white blood cell count, unspecified; D63.8 Anemia in other chronic diseases classified elsewhere; Z20.822 Contact with and (suspected) exposure to COVID-19; E11.22 Type 2 diabetes mellitus with diabetic chronic kidney disease; Z79.4 Long term (current) use of insulin; Z91.148 Patient's other noncompliance with medication regimen for other reason; Z99.2 Dependence on renal dialysis; Z91.199 Patient's noncompliance with other medical treatment and regimen due to unspecified reason
CPT/HCPCS: 31500; 36415; 36556; 36581; 36589; 36600; 71045; 76770; 76937; 77001; 80048; 80053; 80305; 81003; 82270; 82330; 82375; 82550; 82553; 82728; 82805; 82962; 83036; 83540; 83550; 83605; 83735; 83880; 84100; 84132; 84145; 84439; 84443; 84484; 85014; 85018; 85025; 85027; 86705; 86709; 86850; 86900; 86920; 87340; 87426; 90935; 92610; 93005; 93306; 93970; 94002; 94003; 94640; 97162; 97166; 97530; 97535; 99152; 99153; 99285; C1750; C1752; C1769; C1892; C9113; J0360; J0461; J0610; J0690; J0696; J0885; J1265; J1642; J1644; J1815; J1940; J2543; J2704; J3010; J3370; J3490; J7050; J7060; P9016; G0500